=== PATIENT | female | born 2005 | race African-American/Black ===

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

== ENCOUNTER 2024-01-08 19:05 | Emergency (ER) | payer OTHER ==
[2024-01-08 19:13] VITALS: BP 123/70; PULSE 77; RESP 16; TEMP 97.4; BMI 24.0
== END 2024-01-08 20:47 | disposition home or self-care (01) ==
LOC: JER 19:05 → JERFT 19:05
DX: S69.91XA Unspecified injury of right wrist, hand and finger(s), initial encounter (principal); W22.8XXA Striking against or struck by other objects, initial encounter; Y04.0XXA Assault by unarmed brawl or fight, initial encounter
CPT/HCPCS: 73110-TC-RT-FY; 73130-TC-RT-FY; 99283-25